=== PATIENT | female | born 1975 | race Caucasian/White ===

== ENCOUNTER 2023-07-09 08:45 | Day surgery (SDC) | payer OTHER ==
[~2023-07-09] VITALS: Ht 157.5 cm; Wt 104.3 kg
[2023-07-09] MEDS: CEFAZOLIN SOD 2 GM in D5W 50 ML IV ONE (07:00)
[2023-07-09] MEDS ORDERED: VITD2000 PO (09:47)
[2023-07-09] MEDS ORDERED: VITA40TA PO (09:47)
[2023-07-09] MEDS ORDERED: FISH1CAP18 PO (09:47)
[2023-07-09] MEDS ORDERED: PROG200C11 PO (09:47)
[2023-07-09] MEDS ORDERED: CLI.1P TD (09:47)
[2023-07-09] MEDS ORDERED: PROPOFOL 200MG/ 20ML VIAL (DIPRIVAN) IV ONE (10:45)
[2023-07-09] MEDS ORDERED: GLYCOPYRROLATE 0.2 MG/ML VIAL ONE (10:45)
[2023-07-09] MEDS ORDERED: ROCURONIUM BROMIDE 10 MG/ML (ZEMURON) ONE (10:45)
[2023-07-09] MEDS ORDERED: KETOROLAC TROMETHAMINE 30 MG VIAL ONE (10:45)
[2023-07-09] MEDS ORDERED: CLINDAMYCIN 2% VAGINAL CREAM VG ONE (10:45)
[2023-07-09] MEDS ORDERED: WATER FOR IRRIGATION,STERILE 1,000 ML IRRIG.SOLN IR ONE (10:45)
[2023-07-09] MEDS ORDERED: NS IRRIG SOLN 1000 ML IR ONE (10:45)
[2023-07-09] MEDS ORDERED: BUPIVACAINE /EPINEPHRINE/PF 0.25% 30 ML VIAL ONE (10:45)
[2023-07-09] MEDS ORDERED: DEXTROSE 50% JECT 50 ML DISP.SYRIN ONE (10:45)
[2023-07-09] MEDS ORDERED: LR 1,000 ML IV.SOLN IV ONE (10:45)
[2023-07-09] MEDS ORDERED: SEVOFLURANE 15 MIN GAS INH ONE (10:45)
[2023-07-09] MEDS ORDERED: LIDOCAINE MPF 2% 5mL VIAL INJ ONE (10:45)
[2023-07-09] MEDS ORDERED: METOCLOPRAMIDE HCL 10 MG/2 ML VIAL ONE (10:45)
[2023-07-09] MEDS ORDERED: ceFAZolin SODIUM 2 GM VIAL ONE (10:45)
[2023-07-09] MEDS ORDERED: MIDAZOLAM HCL 2 MG/2 ML VIAL (VERSED) ONE (10:45)
[2023-07-09] MEDS ORDERED: fentaNYL CITRATE/PF 100 MCG/2 ML AMP ONE (10:45)
[2023-07-09] MEDS ORDERED: ONDANSETRON HCL 4 MG/2 ML VIAL ONE (10:45)
[2023-07-09] MEDS: ACETAMINOPHEN I.V. 1000 MG 100 ML IV ONE (11:46)
[2023-07-09] MEDS: LR 1,000 ML IV SCH (12:45)
[2023-07-09] MEDS ORDERED: HYDROmorphone 1 MG/ML INJ. CARTRIDGE IM PRN (13:45)
[2023-07-09] MEDS: HYDROmorphone 2 MG/ML VIAL ONE (14:34)
[2023-07-09] MEDS: HYDROmorphone 1 MG/ML INJ. CARTRIDGE IVP PRN (14:40)
[2023-07-09] MEDS: HYDROmorphone 2 MG/ML VIAL IVP PRN (15:15)
[2023-07-09] MEDS: ONDANSETRON HCL 4 MG/2 ML VIAL IVP PRN ×2 (16:30→20:08)
[2023-07-09 17:00] VITALS: BP_SYST 115; PULSE 73; RESP 16; TEMP 97.9; O2SAT 97
[2023-07-09] MEDS: SIMETHICONE 80 MG TAB.CHEW PO SCH (17:00)
[2023-07-09 17:25] VITALS: BP_SYST 128; PULSE 79; RESP 19; TEMP 98.7; O2SAT 95
[2023-07-09] MEDS: HYDROmorphone 1 MG/ML INJ. CARTRIDGE ONE (17:31)
[2023-07-09] MEDS: ONDANSETRON HCL 4 MG/2 ML VIAL ONE (17:32)
[2023-07-09 19:00] VITALS: BP_SYST 118; PULSE 71; RESP 18; TEMP 97.9; O2SAT 97; O2SAT 99
[2023-07-09 20:00] VITALS: BP_SYST 118; PULSE 71; RESP 18; TEMP 97.7; O2SAT 99
[2023-07-09] MEDS: KETOROLAC TROMETHAMINE 30 MG VIAL IVP PRN (20:09)
[2023-07-09] MEDS: ceFAZolin SODIUM 2 GM in D5W 100 ML IV SCH (20:09)
[2023-07-09] MEDS: TEMAZEPAM 7.5 MG CAPSULE PO SCH (20:10)
[2023-07-09] MEDS: OXYCODONE/ACETAMINOPHEN 5-325 TABLET PO PRN (23:37)
[2023-07-10] VITALS (7 sets, daily range): BP systolic 116–152; PULSE 72–91; RESP 17–20; TEMP 97.4–98.1; O2SAT 16–99
[2023-07-10] MEDS: HYDROcodone/ACETAMIN 5-325 MG TAB (NORCO/ VICODIN) PO PRN (04:46)
[2023-07-10] MEDS: OXYCODONE/ACETAMINOPHEN 5-325 TABLET PO PRN (08:39)
[2023-07-10 11:26] LABS: BILIRUBIN,URINE NEGATIVE (NEGATIVE); BLOOD, URINE 2+ (NEGATIVE); CLARITY/URINE CLEAR (CLEAR); COLOR,URINE YELLOW (YELLOW); GLUCOSE,URINE NEGATIVE (NEGATIVE); KETONES,URINE NEGATIVE (NEGATIVE); LEUKOCYTE ESTERASE ,URINE NEGATIVE (NEGATIVE); NITRITE, URINE NEGATIVE (NEGATIVE); PROTEIN URINE NEGATIVE (NEGATIVE); UROBILINOGEN,URINE 0.2 (0.2-1.0)
[2023-07-10 12:00] LABS: BACTERIA,URINE None Seen /HPF (None Seen); WBC,URINE NONE SEEN /HPF (0-3)
== END 2023-07-10 15:45 | disposition home or self-care (01) ==
LOC: SDS 08:45 → SMU 08:46 → SDS 07-10 11:05
PROVIDERS: ATTEND Specialist
DX: N81.4 Uterovaginal prolapse, unspecified (principal); N39.46 Mixed incontinence; N39.44 Nocturnal enuresis; R63.5 Abnormal weight gain; Z88.1 Allergy status to other antibiotic agents; F32.A Depression, unspecified; Z79.899 Other long term (current) drug therapy
CPT/HCPCS: 87081; 58552; 81000; 57260; 57288; 81001; 88302; 88307; J3490 ×2; J0690; J1885; J2765; J3465; J2405; J2704; J3010; J1170 ×2; J7060 ×2; J7120; C1771; J0131; 81015; J2001

== ENCOUNTER 2023-09-15 05:46 | Emergency (ER) | payer OTHER ==
[~2023-09-15] VITALS: Ht 157.5 cm; Wt 98.4 kg
[~2023-09-15 05:46] MED LIST: CLI.1P TD; FISH1CAP18 PO; PROG200C11 PO; VITA40TA PO; VITD2000 PO
[2023-09-15 05:58] VITALS: BP_SYST 151; PULSE 88; RESP 20; TEMP 97.6; O2SAT 99
[2023-09-15 06:28] LABS: BILIRUBIN,URINE NEGATIVE (NEGATIVE); BLOOD, URINE NEGATIVE (NEGATIVE); CLARITY/URINE CLEAR (CLEAR); COLOR,URINE YELLOW (YELLOW); GLUCOSE,URINE NEGATIVE (NEGATIVE); KETONES,URINE NEGATIVE (NEGATIVE); LEUKOCYTE ESTERASE ,URINE NEGATIVE (NEGATIVE); NITRITE, URINE NEGATIVE (NEGATIVE); PROTEIN URINE NEGATIVE (NEGATIVE); UROBILINOGEN,URINE 0.2 (0.2-1.0)
[2023-09-15 06:44] LABS: BASOPHILS % (AUTO) 0.2 % (0.0-2.0); EOSINOPHILS # (AUTO) 0.1 K/uL (0.0-0.4); EOSINOPHILS % (AUTO) 0.5 % (0.0-4.0); HEMATOCRIT 36.2 % (36-48); HEMOGLOBIN 12.1 g/dL (12.0-16.0); LYMPHOCYTES # (AUTO) 2.3 K/uL (1.0-5.5); LYMPHOCYTES % (AUTO) 21.4 % (20.5-51.5); MEAN CORPUSCULAR HEMOGLOBIN 28 pg (27-31); MEAN CORPUSCULAR HGB CONC 34 % (32-36); MEAN CORPUSCULAR VOLUME 83 fL (79.0-98.0); MONOCYTES # (AUTO) 0.7 K/uL (0.0-1.0); NEUTROPHILS # (AUTO) 7.9 K/uL (1.8-7.7); NEUTROPHILS % (AUTO) 71.9 % (40.0-70.0); PLATELET COUNT (AUTO) 358 K/uL (130-430); RED BLOOD CELL COUNT(AUTO) 4.34 MIL/uL (4.2-6.2); RED CELL DISTRIBUTION WIDTH 14.4 % (9.0-15.0)
[2023-09-15 06:59] LABS: SERUM HCG (QUALITATIVE) NEGATIVE (NEGATIVE)
[2023-09-15 07:02] LABS: INR 0.9 (0.8-1.2); PROTHROMBIN TIME 9.5 SECS (9.5-12.5)
[2023-09-15 07:24] LABS: ALANINE AMINOTRANSFERASE 25 U/L (12-78); ALBUMIN 3.4 g/dL (3.4-4.8); ANION GAP 11 (5-15); ASPARTATE AMINOTRANSFERASE 14 U/L (10-37); CALCIUM 8.9 mg/dL (8.4-11.0); CARBON DIOXIDE 25 mmol/L (23-29); CHLORIDE 103 mmol/L (98-107); CREATININE 0.61 mg/dL (0.55-1.30); GFR AFRICAN AMERICAN 134 mL/min (>90); GFR NON AFRICAN-AMERICAN 111 mL/min (>90); GLUCOSE 105 mg/dL (74-106); POTASSIUM 3.8 mmol/L (3.5-5.1); SODIUM SERUM 139 mmol/L (136-145); TOTAL BILIRUBIN 0.2 mg/dL (0.0-1.0); TOTAL PROTEIN, SERUM 8.2 g/dL (6.4-8.3); UREA NITROGEN, BLOOD 17 mg/dL (8-21)
[2023-09-15 07:47] LABS: AMYLASE 49 U/L (0-100); BILIRUBIN,DIRECT < 0.1 mg/dL (0.0-0.3); LIPASE 39 U/L (16-77)
[2023-09-15] MEDS ORDERED: IBUP-1969 PO (09:26)
[2023-09-15] MEDS ORDERED: AMOX-423 PO (09:26)
[2023-09-15] MEDS: AMOXICILLIN/POTASSIUM CLAV 875 MG TABLET PO ONE (09:32)
[2023-09-15 09:33] VITALS: BP_SYST 119; PULSE 82; RESP 20; TEMP 97.6; O2SAT 99
== END 2023-09-15 09:30 | disposition home or self-care (01) ==
LOC: SED 05:46
DX: K57.92 Diverticulitis of intestine, part unspecified, without perforation or abscess without bleeding (principal); R11.0 Nausea; F32.A Depression, unspecified; Z79.899 Other long term (current) drug therapy; Z79.2 Long term (current) use of antibiotics
CPT/HCPCS: 36415; 80048; 80076; 81001; 81003; 82150; 83605; 83690; 84703; 85025; 85610; 85730; 99284

== ENCOUNTER 2023-09-17 05:45 | Emergency (ER) | payer OTHER ==
[~2023-09-17] VITALS: Ht 157.5 cm; Wt 98.4 kg
[~2023-09-17 05:45] MED LIST changes: +AMOX-423 PO; +IBUP-1969 PO
[2023-09-17 05:55] VITALS: BP_SYST 136; PULSE 65; RESP 16; TEMP 97.7; O2SAT 100
[2023-09-17] MEDS ORDERED: ONDA-8 TL (06:21)
[2023-09-17 06:30] VITALS: BP_SYST 136; PULSE 65; RESP 16; TEMP 97.7; O2SAT 100
[2023-09-17] MEDS ORDERED: ONDANSETRON 4 MG ODT TAB PO ONE (06:30)
== END 2023-09-17 06:30 | disposition home or self-care (01) ==
LOC: SED 05:45
DX: K57.92 Diverticulitis of intestine, part unspecified, without perforation or abscess without bleeding (principal); R11.0 Nausea; F32.A Depression, unspecified; Z79.899 Other long term (current) drug therapy; Z79.2 Long term (current) use of antibiotics
CPT/HCPCS: 99283

== ENCOUNTER 2023-10-09 12:49 | Emergency (ER) | payer OTHER ==
[~2023-10-09] VITALS: Ht 162.6 cm; Wt 86.2 kg
[~2023-10-09 12:49] MED LIST changes: +ONDA-8 TL
[2023-10-09 13:00] VITALS: BP_SYST 144; PULSE 85; RESP 20; TEMP 98.3; O2SAT 98
[2023-10-09 13:15] LABS: BASOPHILS % (AUTO) 0.6 % (0.0-2.0); EOSINOPHILS # (AUTO) 0.1 K/uL (0.0-0.4); EOSINOPHILS % (AUTO) 0.8 % (0.0-4.0); HEMATOCRIT 37.4 % (36-48); HEMOGLOBIN 12.2 g/dL (12.0-16.0); LYMPHOCYTES % (AUTO) 31.6 % (20.5-51.5); MEAN CORPUSCULAR HEMOGLOBIN 28 pg (27-31); MEAN CORPUSCULAR HGB CONC 33 % (32-36); MEAN CORPUSCULAR VOLUME 84 fL (79.0-98.0); MONOCYTES # (AUTO) 0.5 K/uL (0.0-1.0); MONOCYTES % (AUTO) 7.4 % (1.7-9.3); NEUTROPHILS # (AUTO) 3.9 K/uL (1.8-7.7); NEUTROPHILS % (AUTO) 59.6 % (40.0-70.0); PLATELET COUNT (AUTO) 316 K/uL (130-430); RED BLOOD CELL COUNT(AUTO) 4.44 MIL/uL (4.2-6.2); RED CELL DISTRIBUTION WIDTH 15.2 % (9.0-15.0); WHITE BLOOD COUNT (AUTO) 6.5 K/uL (4.8-10.8)
[2023-10-09 13:28] LABS: SERUM HCG (QUALITATIVE) NEGATIVE (NEGATIVE)
[2023-10-09 13:31] LABS: ALBUMIN 3.7 g/dL (3.4-4.8); CALCIUM 9.3 mg/dL (8.4-11.0); CREATININE 0.64 mg/dL (0.55-1.30); POTASSIUM 4.1 mmol/L (3.5-5.1); TOTAL BILIRUBIN 0.2 mg/dL (0.0-1.0); TOTAL PROTEIN, SERUM 7.7 g/dL (6.4-8.3)
[2023-10-09 13:35] LABS: INR 0.9 (0.8-1.2); PROTHROMBIN TIME 9.8 SECS (9.5-12.5)
[2023-10-09 13:40] LABS: BILIRUBIN,DIRECT 0.1 mg/dL (0.0-0.3)
[2023-10-09 14:13] LABS: BILIRUBIN,URINE NEGATIVE (NEGATIVE); BLOOD, URINE NEGATIVE (NEGATIVE); CLARITY/URINE SL CLOUDY (CLEAR); COLOR,URINE YELLOW (YELLOW); GLUCOSE,URINE NEGATIVE (NEGATIVE); KETONES,URINE NEGATIVE (NEGATIVE); LEUKOCYTE ESTERASE ,URINE NEGATIVE (NEGATIVE); NITRITE, URINE NEGATIVE (NEGATIVE); PH,URINE 5.5 (5.0-8.0); PROTEIN URINE NEGATIVE (NEGATIVE); UROBILINOGEN,URINE 0.2 (0.2-1.0)
[2023-10-09] MEDS: KETOROLAC TROMETHAMINE 30 MG VIAL IVP ONE (16:19)
[2023-10-09] MEDS: ONDANSETRON HCL 4 MG/2 ML VIAL IVP ONE (16:19)
[2023-10-09] MEDS ORDERED: HYDR-3917 PO (16:23)
[2023-10-09] MEDS ORDERED: PANT20TA2 PO (16:23)
[2023-10-09] MEDS ORDERED: METR-154 PO (16:23)
[2023-10-09] MEDS ORDERED: LEVO-62 PO (16:23)
[2023-10-09] MEDS: PANTOPRAZOLE SODIUM 40 MG/VIAL (PROTONIX) IVP ONE (16:24)
[2023-10-09] MEDS: NACL 0.9% 1,000 ML IV ONE (16:38)
[2023-10-09] MEDS: metroNIDAZOLE 500 mg/NS 100 ML IV ONE (16:42)
[2023-10-09 18:03] VITALS: BP_SYST 126; PULSE 74; RESP 20; TEMP 97.8; O2SAT 98
== END 2023-10-09 18:00 | disposition home or self-care (01) ==
LOC: SED 12:49
DX: K57.32 Diverticulitis of large intestine without perforation or abscess without bleeding (principal); R10.32 Left lower quadrant pain; F32.A Depression, unspecified; Z79.899 Other long term (current) drug therapy; Z79.2 Long term (current) use of antibiotics
CPT/HCPCS: 99285; 74177; 96365; 96375; 80076; 80048; 81001; 82150; 84703; 83690; 85025; 85610; 85730; 36415; 96368; 81025; 83605; 82397; J1885; J1956; J3490; J2405; J2470; Q9967; 81003